=== PATIENT | female | born 1965 | race African-American/Black ===

== ENCOUNTER 2020-06-15 08:24 | Outpatient (CLI) | payer MEDICARE, MEDICAID | END 2020-06-15 08:25 | disposition home or self-care (01) | LOC: BICULT 08:24 | PROVIDERS: ATTEND Nurse Practitioner Family | DX: R13.10 Dysphagia, unspecified (principal); K80.20 Calculus of gallbladder without cholecystitis without obstruction | CPT/HCPCS: 93975 ==